=== PATIENT | female | born 1980 | race Caucasian/White ===

== ENCOUNTER 2017-06-10 19:56 | Emergency (ER) | payer OTHER ==
[~2017-06-10] VITALS: Ht 160 cm; Wt 70.1 kg
[2017-06-10 20:11] VITALS: BP 135/84
[2017-06-10 20:59] LABS: PATH.CAST-FLAG NOT PRESENT; SPERM-FLAG NOT PRESENT; SRC-FLAG NOT PRESENT; XTAL-FLAG NOT PRESENT; YLC-FLAG NOT PRESENT
== END 2017-06-10 23:49 | disposition home or self-care (01) ==
LOC: ED 23:43
DX: N30.90 Cystitis, unspecified without hematuria (principal)
CPT/HCPCS: 81001; 99283